=== PATIENT | male | born 1955 | race Caucasian/White ===

== ENCOUNTER 2019-06-08 12:49 | Outpatient (CLI) | payer MEDICARE, SELFPAY ==
--- NOTE | 2019-06-08 | ECG_ITS ---
Measurements Intervals [place] Rate: 87 P: 58 MI: 173 QRS: -6 QRSD: 89 T: 63 QT: 366 QTc: 442 Interpretive Statements SINUS RHYTHM ATRIAL AND VENTRICULAR PREMATURE COMPLEXES BASELINE ARTIFACT- I, III, AVR, AVL, AVF ABNORMAL ECG Electronically Signed On 06-08-2019 13:45:16 CDT by Quentin Franco D.O.
--- NOTE | ~2019-06-08 | XR_ITS ---
XR chest 2V 06/08/2019 13:29 Indication: Cough Procedure: 2 view chest Comparison: No prior studies for comparison. Findings: Heart size normal. Left basilar atelectasis. No focal pneumonia, edema or effusion. No acut e osseous abnormality. Impression: 1: Left basilar atelectasis. Reviewed, dictated and finalized at location A. Impression: 1: Left basilar atelectasis.
[2019-06-08 13:46] LABS: Basophils Absolute Auto 0.1 K/mm3 (0.0-0.1); Basophils Percent Auto 0.9 % (0.2-1.2); Eosinophils Absolute Auto 0.3 K/mm3 (0-0.3); Eosinophils Percent Auto 3.3 % (0-4.4); Hematocrit 46.8 % (42.0-52.0); Immature Granulocyte Absolute 0.09 K/mm3 (0.00-0.031); Immature Granulocyte Percent A 1.2 % (0-0.5); Lymphocytes Absolute Auto 1.52 K/mm3 (0.9-3.2); Lymphocytes Percent Auto 19.5 % (18.3-44.2); Mean Corpuscular HGB Conc 34.2 g/dl (32-36); Mean Corpuscular Hemoglobin 29.7 pg (26-34); Mean Corpuscular Volume 86.8 fl (80-100); Mean Platelet Volume 10.8 fl (7.4-10.4); Monocytes Absolute Auto 0.5 K/mm3 (0.1-0.6); Monocytes Percent Auto 5.9 % (2.6-8.5); Neutrophils Absolute Auto 5.4 K/mm3 (1.3-6.7); Neutrophils Percent Auto 69.2 % (45.5-73.1); Platelet Count Result 253 k/mm3 (150-375); Red Blood Count 5.39 M/mm3 (4.6-6.20); Red Cell Distribution Width 13.2 % (11.5-14.5); White Blood Count 7.8 K/mm3 (4.5-10.0)
[2019-06-08 13:59] LABS: Alanine Aminotransferase 45 U/L (4-50); Albumin Level 4.5 g/dL (3.5-5.1); Alkaline Phosphatase 61 U/L (38-126); Aspartate Amino Transferase 38 U/L (17-59); Bilirubin,Total 0.8 mg/dL (0.2-1.3); Blood Urea Nitrogen 16 mg/dL (9-20); Calcium 9.4 mg/dL (8.4-10.2); Carbon Dioxide 28 mmol/L (22-30); Chloride 102 mmol/L (98-107); Estimated Glomerular Filt Rate > 60; Glucose 116 mg/dL (75-110); Potassium 4.2 mmol/L (3.4-5.0); Sodium 138 mmol/L (137-145)
[2019-06-08 14:28] LABS: Thyroid Stimulating Hormone 0.989 uIU/mL (0.465-4.680)
[2019-06-10 21:43] LABS: Vitamin D 1,25 (OH)2 Total 54 pg/mL (18-72); Vitamin D2 1,25 (OH)2 29 pg/mL; Vitamin D3 1,25 (OH)2 25 pg/mL
== END 2019-06-08 12:50 | disposition home or self-care (01) ==
PROVIDERS: PCP Emergency Medicine; Visit Provider Emergency Medicine
DX: E55.9 Vitamin D deficiency, unspecified (principal); R53.83 Other fatigue; E78.5 Hyperlipidemia, unspecified; R05 Cough; I49.9 Cardiac arrhythmia, unspecified; R91.8 Other nonspecific abnormal finding of lung field; R94.31 Abnormal electrocardiogram [ECG] [EKG]
CPT/HCPCS: 36415; 71046; 80053; 82652; 84443; 85025; 93005

== ENCOUNTER 2019-06-22 10:24 | Outpatient (CLI) | payer MEDICARE, SELFPAY ==
[2019-06-22 11:16] LABS: Hemoglobin A1C 5.7 % (<5.7)
== END 2019-06-22 10:25 | disposition home or self-care (01) ==
LOC: ANHLAB 10:26
PROVIDERS: PCP Emergency Medicine; Visit Provider Emergency Medicine
DX: E78.2 Mixed hyperlipidemia (principal)
CPT/HCPCS: 36415; 83036

== ENCOUNTER → 2020-05-22 14:03 | Outpatient (CLI) | payer MEDICARE, SELFPAY ==
--- NOTE | ~2020-05-22 | XR_ITS ---
EXAMINATION: XR knee RT 2V DATE: 05/22/2020 14:52 INDICATION: Right knee pain. Strain of unspecified muscles and tendons at right knee. TECHNIQUE: 2 views of right knee were obtained. COMPARISON: None. FINDINGS: Bone alignment is normal. No fracture. There is mild osteoarthritis of patellofemoral danilo rtment characterized by a tiny marginal osteophyte. There is a small knee joint effusion. IMPRESSION: 1. Mild right knee osteoarthritis. 2. Small right knee joint effusion. Reviewed, dictated and finalized at location A. 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
== END ==
PROVIDERS: PCP Emergency Medicine; Visit Provider Emergency Medicine
DX: S86.911A Strain of unspecified muscle(s) and tendon(s) at lower leg level, right leg, initial encounter (principal); X58.XXXA Exposure to other specified factors, initial encounter; R52 Pain, unspecified; M17.11 Unilateral primary osteoarthritis, right knee; M25.461 Effusion, right knee
CPT/HCPCS: 73560

== ENCOUNTER 2020-07-25 09:06 | Outpatient (RCR) | payer MEDICARE, SELFPAY ==
--- NOTE | 2020-07-25 08:11 | PTOPEVAL ---
Thank you for referring Nadir Candelaria to [facility].? The patient is scheduled to be seen for therapy? ____x/week for ___ weeks. Please review, sign, date and return this plan of care ANGEL. I agree with and certify that the following plan of care is medically necessary. Referring Physician Date Admitting Provider: Attending Provider: Kendell Rapp MD Referring Provider: *PT Outpatient Evaluation Start: 07/25/20 07:07 Freq: Status: Active Protocol: Document 07/25/20 07:00 [facility] (Rec: 07/25/20 08:07 [facility] [id number]) Therapy Assessment Status Assessment Status Assessment Status Evaluation Evaluation Information Problem Diagnosis posterior R knee pain Onset 02/28/20 Additional Evaluation Detail LEFS = 58% functional deficits Subjective Information patient reports he was up on a Query Text:As Reported By Patient/ ladder back in february. he Family reports he missed the last step and came down hard with his R leg out. he reports he did not fall over, but came down with a straight leg. he reports he felt pain up the back of the thigh above the knee. he reports he has been in to see the ortho. he reports he has some fluid on his R knee. he reports now, the pain is just behind the knee and down the outside of the R knee. he reports he has increased pain in the R knee with kneeling down. he reports walking 1-2 miles does not bother his knee. he reports he uses the warm water of the shower to loosen up the knee. 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 Prior Level of Function Comments Additional Prior Level of Function prior to february, no issues Comments with the R knee. 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 he reports he does need to kneel down at work from time to time at work. Pain Assessment Timing of Pain Assessment Timing of Pain Assessment Assessment Pain Scale Pain Scale Used Numeric (1 - 10) Self Rep
--- NOTE | 2020-08-16 08:06 | PTOPEVAL ---
Thank you for referring Nadir Candelaria to [facility].? The patient is scheduled to be seen for therapy? ____x/week for ___ weeks. Please review, sign, date and return this plan of care ANGEL. I agree with and certify that the following plan of care is medically necessary. Referring Physician Date Admitting Provider: Attending Provider: Kendell Rapp MD Referring Provider: *PT Outpatient Evaluation Start: 07/25/20 07:07 Freq: Status: Active Protocol: Document 08/16/20 07:46 [facility] (Rec: 08/16/20 08:06 [facility] [id number]) Therapy Assessment Status Assessment Status Assessment Status Re-evaluation Evaluation Information Problem Diagnosis posterior R knee pain Onset 02/28/20 Subjective Information patient reports he feels Query Text:As Reported By Patient/ Great this date. he reports Family he has decreased pain in the posterior R thigh and decreased pain in the R knee. he reports he has begun a walking program at home. he reports he would like to begin riding his bike. Pain Assessment Timing of Pain Assessment Timing of Pain Assessment Assessment Pain Scale Pain Scale Used Numeric (1 - 10) Self Report Pain Assessment Right Knee(s) Reported Pain Level 3 Greatest Pain Intensity 5 Pain Score Pain Score 3: Self Report Interventions Used Interventions Used By Clinicians Activity or ADL's,Electrical Stimulation,Exercise,Heat, Manual Therapy Techniques Lower Extremity Muscle Strength Testing Hip Strength Left Hip Flexion Strength 4+ Good + Hip Abduction Strength 5 Normal Right Hip Flexion Strength 4+ Good + Hip Abduction Strength 5 Normal Knee Strength Bilateral Knee Flexion Strength 5 Normal Knee Extension Strength 5 Normal Muscle Length Testing Muscle Length Testing Left Hamstring Length 15 Query Text:(90 - 90 Position) Right Hamstring Length 15 Query Text:(90 - 90 Position) Palpation Assessment Palpation Palpation patient presents with tenderness to palpation of the posterior medial knee of the R LE consistent with the medial band of the hamstrings mm. General Exercise General Exercises Exercise Description -passive HS stretch x 5 Query Text:Record Sets, Reps, minutes right Resistance, and Position
== END 2020-09-11 09:38 | disposition home or self-care (01) ==
LOC: CHSPT 09:06
PROVIDERS: Visit Provider Orthopaedic Surgery
DX: M25.569 Pain in unspecified knee (principal)
CPT/HCPCS: 97014; 97110; 97140; 97161; 97530; G0283

== ENCOUNTER 2021-08-06 08:02 | Outpatient (CLI) | payer MEDICARE, SELFPAY ==
--- NOTE | ~2021-08-06 | XR_ITS ---
XR knee RT min 4V 08/06/2021 08:33 Indication: Right knee pain Procedure: 4 views right knee Comparison: 05/22/2020 Findings: There is anatomic alignment. There is mild patellofemoral compartment osteoarthritis. No ac jakob fracture or traumatic malalignment. No significant joint effusion. No foreign bodies. Impression: 1: Mild patellofemoral compartment osteoarthritis. Reviewed, dictated and finalized at location A. Impression: 1: Mild patellofemoral compartment osteoarthritis.
== END 2021-08-06 08:03 | disposition home or self-care (01) ==
LOC: CHSIMG 08:05
PROVIDERS: PCP Emergency Medicine; Visit Provider Orthopaedic Surgery
DX: M25.561 Pain in right knee (principal)
CPT/HCPCS: 73564

== ENCOUNTER 2025-01-14 19:05 | Emergency (ER) | payer MEDICARE, SELFPAY ==
--- NOTE | ~2025-01-14 | XR_ITS ---
EXAMINATION: XR shoulder LT min 2V, 01/14/2025 19:14 CDT HISTORY: FALL. LEFT SHOULDER PAIN. COMPARISON: No comparisons available. Findings: The humeral head is dislocated anteriorly and inferiorly. No significant degenerative changes. Soft tissues unremarkable. Impression: Dislocation detailed above Reviewed, dictated and finalized at location P. Impression: Dislocation detailed above
--- NOTE | ~2025-01-14 | XR_ITS ---
Examination: XR shoulder LT min 2V Clinical History: Shoulder dislocation Comparison: 1 hour prior Technique: 3 views left shoulder Findings/impression: 1. Persistent anterior inferior dislocation of humeral head. 2. No associated fracture identified. Reviewed, dictated and finalized at location R. EL DIRECTOR
--- NOTE | ~2025-01-14 | XR_ITS ---
Examination: XR shoulder LT min 2V Clinical History: Shoulder dislocation. POST REDUCTION ATTEMPT. Comparison: 1 hour prior Technique: 2 views left shoulder Findings/impression: 1. Persistent anterior inferior shoulder dislocation. 2. No associated fracture identified. Reviewed, dictated and finalized at location R. OM STEEP TENDER
--- NOTE | ~2025-01-14 | XR_ITS ---
EXAMINATION: XR clavicle LT, 01/14/2025 19:14 CDT HISTORY: FALL. LEFT SHOULDER PAIN. COMPARISON: No comparisons available. Findings: No acute fracture or malalignment. No significant degenerative changes. Soft tissues unremarkable. Impression: No acute fracture or malalignment. Reviewed, dictated and finalized at location P. Impression: No acute fracture or malalignment.
[2025-01-14 19:15] VITALS: BP 204/111; PULSE 86; RESP 20; TEMP 36.6; O2SAT 97
[2025-01-14] MEDS: KETOROLAC 15 MG/ML VIAL (*BKC) IV PUSH (19:19)
[2025-01-14 19:35] VITALS: BP 182/95; PULSE 89; RESP 20; O2SAT 96
[2025-01-14] MEDS: MORPHINE SULFATE (*CRX) 4 MG/ML INJ IV PUSH (19:40)
--- NOTE | 2025-01-14 19:40 | PC.NURSE ---
Pt repositioned for comfort and MSO4 4 mg IVP given per order. Awaiting Xray results.
--- NOTE | 2025-01-14 19:56 | PC.NURSE ---
ERP in to discuss reducing Lt shoulder dislocation. Pt agreeable w/ POC. Consent signed for closed reduction of Left Shoulder.
[2025-01-14 20:05] VITALS: BP 117/98
[2025-01-14 20:37] VITALS: BP 166/88
[2025-01-14] MEDS: HYDROmorphone HCL INJ (*CRX) 2 MG/ML VIAL 1 MG IV PUSH ×2 (20:40→22:48)
--- NOTE | 2025-01-14 20:42 | PC.NURSE ---
Continuing to attempt to reduce shoulder after multiple attempts by ERP. Pt given another dose of pain medicine to help w/ pain before attempting to reduce again. VSS.
--- NOTE | 2025-01-14 21:12 | PC.NURSE ---
Multiple attempts made by Dr Wang to reduce shoulder, unsuccessful. POC to transfer, pt wants to go to [facility]. Call placed for transfer.
--- NOTE | 2025-01-14 21:42 | PC.NURSE ---
Lt arm and shoulder placed in sling for comfort, awaiting call back from ortho at [facility]. Pt assisted w/ SBA at bedside to use urinal and then back to bed w/ sling in place.
--- NOTE | 2025-01-14 21:45 | ED.UPPEXIN ---
HPI - Extremity Injury (Upper) General Chief Complaint: Extremity Injury, Upper Stated Complaint: Shoulder Injury Time Seen by Provider: 01/14/25 19:10 Source: patient and family Mode of arrival: ambulatory Limitations: no limitations History of Present Illness HPI narrative: This is a 69-year-old male who presents from home after he had a fall earlier today causing deformity of his left shoulder with pain on a no loss of consciousness no other injuries noted. Patient has left shoulder deformity with no numbness or tingling has a good radial pulse on the left no chest pain no shortness of breath no abdominal pain no fever chills. complaint: injury to: left Onset (ago): hour(s) Other Extremity Injury: Left: shoulder (dislocation) Related Data Home Medications ?Medication ?Instructions ?Recorded ?Confirmed ?Last Taken ?Type No Home Medications 01/14/25 01/14/25 Unknown History Allergies Allergy/AdvReac Type Severity Reaction Status Date / Time No Known Allergies Allergy Verified 01/14/25 19:08 Review of Systems Review of Systems: All systems reviewed & are unremarkable except as noted in HPI and below PMFSH Past Medical History Medical History Right knee pain Arthritis Depression Weight gain Spider bite (~2012) Deviated septum (~1989) History of broken nose (~1989) Screening PSA (prostate specific antigen) Colon cancer screening Screening cholesterol level Family History Family History Father , 39 Heart attack Mother , 63 Diabetes mellitus Sibling Multiple sclerosis Social History Social History Smoking status: Never smoker Alcohol intake: never Substance use: never Substance use type: does not use Gender identity (if verbalized by the patient): Male Exam Const: General: healthy appearing, no acute distress and alert Nutritional Appearance: well nourished and obese Orientation/consciousness: patient oriented x3 Limitations: no limitations Cardio: Rate: regular rate Rhythm: regular rhythm GI: GI Palp: Yes Soft to palpation Auscultation: normal bowel sounds : General: Yes bladder normal to palpation Skin: General skin exam: normal color Rashes: no rashes Wounds: no wounds Neuro: General: patient oriented x3, moves all extremities and no meningeal signs Extrem: Other: Left shoulder deformity Course Course Emergency Course: Medical decision making narrative: The patient was evaluated by myself in the emergency department history obtained from the patient who is an independent historian physical exam performed and witnessed by the nurse. Patient had a shoulder x-ray which shows dislocation of the left shoulder anterior-inferior position. The patient was given Dilaudid and morphine for pain and attempt of reduction of the left shoulder was unsuccessful with successive times. Repeat assessment: The patient is doing well on repeat exam no acute distress Symptoms have been unchanged since arrival to the ED Repeat vitals are stable blood pressure is currently 159/87. Patient agrees with discussion after shared medical decision making and agrees with transfer to a higher facility for higher level of care with Ortho. All questions answered to the patient's satisfaction. Vital Signs Vital signs: Vital Signs Temperature 36.6 C 01/14/25 19:15 Pulse Rate 86 01/14/25 19:15 Respiratory Rate 20 01/14/25 19:15 Blood Pressure 204/111 H 01/14/25 19:15 Pulse Oximetry 97 01/14/25 19:15 Oxygen Delivery Room Air 01/14/25 19:15 Temperature 36.6 C 01/14/25 19:15 Pulse Rate 89 01/14/25 19:35 Respiratory Rate 20 01/14/25 19:35 Blood Pressure 166/88 H 01/14/25 20:37 Pulse Oximetry 96 01/14/25 19:35 Oxygen Delivery Room Air 01/14/25 19:35 Critical Care Time Critical Care Time Critical Care Time: No Discharge Plan Discharge Clinical Impression: Anterior shoulder dislocation Qualifiers: Encounter type: initial encounter Laterality: left Qualified Code(s): S43.015A - Anterior dislocation of left humerus, initial encounter Patient Disposition: Acute Care Hospital Condition: Stable Patient Language: Frisian Prescriptions: No Action No Home Medications Follow-up/Referrals: Josias,Adan Barrow MD [Primary Care Provider]
--- NOTE | 2025-01-14 22:25 | PC.NURSE ---
Report given to Isela in ED at [facility]. Pt will transfer w/ EMS and paperwork signed for transfer.
[2025-01-14 22:30] VITALS: BP 166/107; PULSE 90; RESP 18; O2SAT 97
[2025-01-14 23:00] VITALS: BP 157/90; PULSE 90; RESP 20; TEMP 36.6; O2SAT 97
== END 2025-01-14 23:00 | disposition short-term general hospital (02) ==
PROVIDERS: Emergency Provider Emergency Medicine; PCP Family Medicine
DX: S43.015A Anterior dislocation of left humerus, initial encounter (principal); W19.XXXA Unspecified fall, initial encounter
CPT/HCPCS: 73000; 73030; 96374; 96375; 96376; 99285; A4565; J1171; J1885; J2270